=== PATIENT | male | born 1975 | race African-American/Black ===

== ENCOUNTER 2018-01-26 09:58 | Emergency (ER) | payer MEDICAID ==
[~2018-01-26] VITALS: Ht 182.9 cm; Wt 71.2 kg
[2018-01-26 13:10] VITALS: BP 122/82
== END 2018-01-26 14:50 | disposition home or self-care (01) ==
LOC: ER 09:58
DX: S83.91XA Sprain of unspecified site of right knee, initial encounter (principal); F17.210 Nicotine dependence, cigarettes, uncomplicated; X58.XXXA Exposure to other specified factors, initial encounter; Y93.89 Activity, other specified; Y92.89 Other specified places as the place of occurrence of the external cause; Y99.8 Other external cause status
CPT/HCPCS: 73562